=== PATIENT | male | born 1955 | race Caucasian/White ===

== ENCOUNTER 2024-01-29 13:39 | Emergency (ER) | payer MEDICARE, SELFPAY ==
[2024-01-29 13:44] VITALS: BP 117/85
[2024-01-29 13:49] VITALS: BMI 25.0
--- NOTE | 2024-01-29 14:19 | ED.GENMED ---
History of Present Illness
General
Chief Complaint: Chest Pain
Time Seen by Provider: 01/29/24 14:13
History of Present Illness
History of Present Illness:
68-year-old male presents to the emergency department for evaluation of left-sided chest discomfort that is been ongoing for the past 3 to 4 days. No obvious provoking or palliating factors. Denies any pleuritic nature to the pain. Denies any
trauma. Denies any exertional worsening of symptoms. No fever, chills, sweats, nausea, vomiting, or shortness of breath. Has never experienced similar pain.
Review of Systems
Review of Systems
Allergies reviewed?: Yes
All Other Systems: ROS reviewed and negative except as documented in HPI and ROS
Phy Exam
Physical Exam
Physical Exam:
GEN: Well appearing, NAD, WDWN
HEENT: Oral mucosa moist, no scleral icterus
Cardiac: Regular rate and rhythm, no murmurs
Lung: No respiratory distress, no tachypnea, lungs CTAB
MSK: No gross deformity or injuries
Skin: Good color, no pallor or jaundice, no rashes
Neuro: AO x3, moves all extremities freely
Psych: Calm, cooperative
Scores
Heart Score for Chest Pain Patients
STEMI patient?: No
History: Slightly or Non-Suspicious
ECG: Nonspecific Repolarization
Age: >/= 65 years
Risk Factors: No Risk Factors
Troponin: </= Normal Limit
Heart Score for Chest Pain Patients: 3
Heart Score Risk: 2.5% MACE over next 6 weeks
Course
Orders/Labs/Results
Orders:
Orders
01/29/24 13:41
EKG [Electrocardiogram (*1)] Urgent
Reason for Study: Chest Pain
EKG- Treatment ONCE
01/29/24 14:06
CMP [Comprehensive Metabolic Panel] Urgent
Complete Blood Count/With Diff Urgent
Troponin I Urgent
01/29/24 14:19
CR Chest - 2 Views Urgent
Comment:
Reason For Exam: chest pain
Abnormal Lab Results
01/29/24
14:06
Absolute Monos (auto) 0.7 H 10^3/uL
(0.1-0.6)
Monocytes % 10.0 H %
(1.7-9.3)
01/29/24 14:06
01/29/24 14:06
Vital Signs
Initial and Last Documented VS:
Initial Vital Signs
Temp Pulse Resp BP Pulse Ox
98.2 F 59 18 117/85 98
01/29/24 13:44 01/29/24 13:44 01/29/24 13:44 01/29/24 13:44 01/29/24 13:44
Last Documented Vital Signs
Temp Pulse Resp BP Pulse Ox
98.2 F 57 16 117/76 99
01/29/24 13:44 01/29/24 15:50 01/29/24 14:15 01/29/24 15:50 01/29/24 15:50
MDM/Problems Addressed
MDM/Problems Addressed:
68-year-old male presents with chest pain. His EKG is nonischemic although he does have impressive amount of repolarization changes, troponin is negative, chest x-ray reassuring. Does not have a strong cardiovascular risk factors. Will refer to
cardiology for further outpatient workup
*Critical Care Note
Total Time (30-74mins, 75-104mins- exclusive of procedures): Not Applicable
ED Attending Note
-
Portions of this chart may have been created with voice recognition software.� Occasional wrong word or��sound alike� substitutions may have occurred due to the inherent limitations of voice recognition software.
Discharge Plan
Departure
Patient Disposition: Home (Routine Discharge)
Date of Disposition: 01/29/24
Time of Disposition: 15:30
Patient with high blood pressure during this ER visit?: No
Discharge Problem:
Chest pain
Instructions: Chest Pain DCA Follow Up
Prescriptions:
No Action
donepezil 10 mg Tablet
10 mg PO DAILY
memantine 21 mg Capsule,Sprinkle,Er 24hr
21 mg PO DAILY
Referrals:
Luli Avila MD [Active] -
Interventions
Interventions:
*Risk Screen - Suicide Last Done: 01/29/24 13:50
*General Assessment Last Done: 01/29/24 13:44
*Neglect/Abuse Screening Last Done: 01/29/24 13:50
ED- Fall Risk Assessment Last Done: 01/29/24 13:52
*ED COVID-19 Vaccine History Last Done: 01/29/24 13:50
*Nursing Disposition Last Done: 01/29/24 15:50
ED- Cardiac Assessment Last Done: 01/29/24 14:07
Discharge Date and Time
Discharge Date/Time: 01/29/24 16:00
Print Language: LATVIAN
[2024-01-29 14:21] LABS: % Basophils 0.7 % (0-2); % Eosinophils 1.5 % (0-6); % Immature Granulocytes 0.1 % (0-0.5); % Lymphocytes 24.7 % (20.5-51.1); Absolute Basophils 0.1 10^3/uL (0-0.2); Absolute Eosinophils 0.1 10^3/uL (0-0.7); Absolute Lymphocytes 1.7 10^3/uL (1.2-3.4); Absolute Monocytes 0.7 10^3/uL (0.1-0.6); Absolute Neutrophils 4.2 10^3/uL (1.4-6.5); Mean Corp Hgb Conc. 33.3 g/dL (33.0-37.0); Mean Corpuscular Hgb 28.8 pg (27.0-31.0); Mean Corpuscular Volume 86.4 fL (80.0-94.0); Mean Platelet Volume 9.4 fL (7.4-10.4); Nucleated Red Blood Cells % 0 % (-); Platelet Count 291 10^3/uL (130-400); Red Blood Cell Count 5.21 10^6/uL (4.70-6.10); Red Cell Dist. Width 12.4 % (11.5-14.5); White Blood Cell Count 6.7 10^3/uL (4.8-10.8)
[2024-01-29 14:33] LABS: ALT (SGPT) 34 U/L (0-50); AST (SGOT) 33 U/L (17-59); Albumin 4.7 g/dl (3.5-5.0); Alkaline Phosphatase 95 U/L (38-126); Blood Urea Nitrogen 19 mg/dl (9-20); Calcium 10.1 mg/dl (8.4-10.2); Carbon Dioxide 30 mmol/L (22-30); Chloride 103 mmol/L (98-107); Estimated Creatinine Clearance 68 ml/min; Glucose 85 mg/dl (70-99); Potassium 4.6 mmol/L (3.5-5.1); Sodium 141 mmol/L (135-145); Total Bilirubin 1.1 mg/dl (0.2-1.3); Total Protein 7.6 g/dl (6.3-8.2); eGFR > 60.00
[2024-01-29 14:44] LABS: Troponin I < 0.012 ng/ml
[2024-01-29 15:50] VITALS: BP 117/76
== END 2024-01-29 16:00 | disposition home or self-care (01) ==
LOC: EMR 13:39
PROVIDERS: Student in an Organized Health Care Education/Training Program; EMERGENCY PHYSICIAN Emergency Medicine; FAMILY PHYSICIAN Internal Medicine
DX: R07.89 Other chest pain (principal)
CPT/HCPCS: 99283; 71046; 80053; 84484; 85025; 93005